=== PATIENT | female | born 1940 | race Caucasian/White ===

== ENCOUNTER 2022-04-20 13:44 | Emergency (ER) | payer MEDICARE, BC ==
[~2022-04-20] VITALS: Ht 160 cm; Wt 59.0 kg
[2022-04-20] MEDS ORDERED: TDAP DIPH,PERTUSS,TET VAC/PF 0.5 ML DISP.SYRIN IM ONE ×2 (14:15→14:43)
[2022-04-20] MEDS ORDERED: NEOMY/BACITRA/POLYMYXIN B OINT UD PACKET TP ONE ×2 (14:15→14:42)
[2022-04-20] MEDS ORDERED: ACET-2605 PO (16:09)
--- NOTE | 2022-04-20 17:56 | NUR ---
Patient discharged in stable condition. Written and verbal after care instructions given. Patient verbalizes understanding of instructions. Stressed follow up or return to ER for worsening s/s. Pt was assissted to taxi.
[2022-04-20 17:57] VITALS: BP 102/66
== END 2022-04-20 17:58 | disposition home or self-care (01) ==
LOC: ER 13:44
DX: S01.81XA Laceration without foreign body of other part of head, initial encounter (principal); W01.118A Fall on same level from slipping, tripping and stumbling with subsequent striking against other sharp object, initial encounter; Y93.01 Activity, walking, marching and hiking; Y92.481 Parking lot as the place of occurrence of the external cause; G62.9 Polyneuropathy, unspecified; E78.5 Hyperlipidemia, unspecified; M50.322 Other cervical disc degeneration at C5-C6 level; M48.02 Spinal stenosis, cervical region
CPT/HCPCS: 70450; 72125; 90715; A4663